=== PATIENT | male | born 1955 | race Caucasian/White ===

== ENCOUNTER 2017-09-22 23:49 | Emergency (ER) | payer OTHER ==
[2017-09-23] MEDS: NORCO 5/325MG TABLET (BULK FOR ED) PO (02:11)
== END 2017-09-23 02:22 | disposition home or self-care (01) ==
LOC: M ED 23:49
DX: S22.31XA Fracture of one rib, right side, initial encounter for closed fracture (principal); W01.0XXA Fall on same level from slipping, tripping and stumbling without subsequent striking against object, initial encounter; Y92.830 Public park as the place of occurrence of the external cause; I10 Essential (primary) hypertension; E78.5 Hyperlipidemia, unspecified; Z79.899 Other long term (current) drug therapy
CPT/HCPCS: 71101